=== PATIENT | male | born 1975 ===

== ENCOUNTER 2020-03-23 12:44 | Inpatient (IN) | payer MEDICAID, SELFPAY ==
[2020-03-23] VITALS (29 sets, daily range): BP systolic 108–151; BP diastolic 68–89; PULSE 82–106; RESP 8–32; TEMP 37.1; O2SAT 87–93
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
--- NOTE | ~2020-03-23 | US_ITS ---
US right upper quadrant INDICATION: Elevated liver enzymes PROCEDURE: Realtime right upper abdominal ultrasound. COMPARISON: No prior studies for comparison. FINDINGS: The pancreas is normal without focal mass or pancreatic ductal dilation. Liver echotexture is normal without focal mass or intrahepatic biliary dilatation. There is normal directional flow i n the portal vein. The gallbladder is normal without stones, gallbladder wall thickening or pericholecystic fluid. Comm on bile duct measures 2.4 mm. No sonographic Parra's sign. IMPRESSION: 1: Normal limited abdominal ultrasound. Reviewed, dictated and finalized at location A. EL SETTER
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
[2020-03-23] MEDS: ALBUTEROL SULFATE NEB 2.5 MG/0.5 ML INH 5 MG INHALATION ×2 (13:21→14:44)
[2020-03-23] MEDS: IPRATROPIUM BR 0.02% INH SOLN 0.5 MG/2.5 ML VIAL INHALATION ×2 (13:21→14:45)
--- NOTE | 2020-03-23 13:34 | PC.NURSE ---
Pt moved to ED Rm 9 per ANDREW Starrmanufacturing quality technician of patient being suicidal. Suicide precautions initiated. 1:1 evaluation with sitter initiated per hospital protocol. ISP officer at bedside.
[2020-03-23 13:43] LABS: Basophils Absolute Auto 0.1 K/mm3 (0.0-0.1); Basophils Percent Auto 0.5 % (0.2-1.2); Eosinophils Absolute Auto 0.1 K/mm3 (0-0.3); Eosinophils Percent Auto 0.9 % (0-4.4); Hematocrit 47.3 % (42.0-52.0); Hemoglobin 17.1 g/dL (14.0-18.0); Immature Granulocyte Absolute 0.03 K/mm3 (0.00-0.031); Immature Granulocyte Percent A 0.3 % (0-0.5); Lymphocytes Absolute Auto 1.78 K/mm3 (0.9-3.2); Lymphocytes Percent Auto 18.7 % (18.3-44.2); Mean Corpuscular HGB Conc 36.2 g/dl (32-36); Mean Corpuscular Hemoglobin 33.3 pg (26-34); Mean Platelet Volume 9.2 fl (7.4-10.4); Monocytes Absolute Auto 0.9 K/mm3 (0.1-0.6); Monocytes Percent Auto 9.4 % (2.6-8.5); Neutrophils Absolute Auto 6.7 K/mm3 (1.3-6.7); Neutrophils Percent Auto 70.2 % (45.5-73.1); Platelet Count Result 204 k/mm3 (150-375); Red Blood Count 5.14 M/mm3 (4.6-6.20); Red Cell Distribution Width 12.2 % (11.5-14.5); White Blood Count 9.5 K/mm3 (4.5-10.0)
[2020-03-23 13:45] LABS: Add Urine Microscopic? NO; Appearance Urine Clear (Clear); Bilirubin Urine Negative (Negative); Blood Urine Negative (Negative); Color Urine Colorless (Yellow); Glucose Urine UA Negative (Negative); Ketones Urine Negative (Negative); Leukocyte Esterase Ur Negative LEU/UL (Negative); Nitrate Urine Negative (Negative); Protein Urine Negative (Negative); Urobilinogen Urine Negative mg/dL (<2.0)
--- NOTE | 2020-03-23 13:48 | PC.NURSE ---
UDT being given per RT.
[2020-03-23 13:53] LABS: INR 0.9; Partial Thromboplastin Time 27.2 SECONDS (22.3-36.8)
[2020-03-23 13:55] LABS: Alanine Aminotransferase 101 U/L (4-50); Albumin Level 4.5 g/dL (3.5-5.1); Alkaline Phosphatase 82 U/L (38-126); Anion Gap 10 mmol/L (8-16); Aspartate Amino Transferase 159 U/L (17-59); Bilirubin,Total 0.6 mg/dL (0.2-1.3); Blood Urea Nitrogen 5 mg/dL (9-20); Carbon Dioxide 30 mmol/L (22-30); Chloride 99 mmol/L (98-107); Estimated CRCL calculation 121 ml/min; Estimated Glomerular Filt Rate > 60; Glucose 102 mg/dL (75-110); Potassium 3.9 mmol/L (3.4-5.0); Sodium 139 mmol/L (137-145)
[2020-03-23 14:04] LABS: Specific Grav Ur 1.004 (1.001-1.035)
[2020-03-23 14:06] LABS: Amphetamine Screen Urine Negative (Negative); Barbiturate Screen Urine Negative (Negative); Benzodiazepines Screen Urine Negative (Negative); Cannabinoid Screen Urine Negative (Negative); Cocaine Screen Urine Negative (Negative); Methadone Screen Urine Negative (Negative); Opiate Screen Urine Negative (Negative); Phencyclidine Screen Urine Negative (Negative)
[2020-03-23 14:15] LABS: Ethanol 351 mg/dL (<10)
--- NOTE | 2020-03-23 14:24 | PC.NURSE ---
Pt listening to ISP outside of room, states you all have to keep me here for a long time, I'm really fucked up in the head .
[2020-03-23 14:25] LABS: Thyroid Stimulating Hormone 0.389 uIU/mL (0.465-4.680)
[2020-03-23] MEDS: methylPREDNISolone SOD SUCC 125 MG VIAL IV PUSH (14:33)
--- NOTE | 2020-03-23 14:34 | PC.NURSE ---
Pt requesting librium po, states where I'm going I'm going to need something for the shaking . Pt given solumedrol IM. C-collar removed per order JESSICA Piper. Note pt has deep, thick sounding cough. Pt reports pain with deep inspiration and coughing.
--- NOTE | 2020-03-23 14:41 | PC.NURSE ---
Pt given solumedrol 125mg IM as does not have IV access per JESSICA Ling.
--- NOTE | 2020-03-23 15:08 | PC.NURSE ---
Pt placed on 02 at 2l/nc for spo2 in 86-88% on room air. spo2 increases to 91%. ISP at bedside issuing patient his tickets.
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
--- NOTE | 2020-03-23 15:48 | PC.NURSE ---
Pt again requests either a librium or a beer. Come on. I'm about to get the shakes . JESSICA Piper, made aware.
--- NOTE | 2020-03-23 16:22 | PC.NURSE ---
Pt made aware of pending bed assignment. Pt resting comfortably on stretcher. Denies needs at present. 1:1 observation continues with sitter per protocol.
--- NOTE | 2020-03-23 17:46 | PC.NURSE ---
Attempt to call report to floor, unable to take and will call back.
--- NOTE | 2020-03-23 18:15 | PC.NURSE ---
Pt transferred to IMU via stretcher per staff. 1:1 sitter to go to floor to continue observation per hospital policy.
[2020-03-23] MEDS: SODIUM CHLORIDE 0.9% IV 1,000 ML 125 ML IV CONT (18:38)
--- NOTE | 2020-03-23 18:53 | ADMGEN ---
This patient, Joe Leyva, was admitted to IMU Room 231-01. Patient/family oriented to hospital policies and general routines including ID bracelet, bed and alarms, visiting hours, pain management, procedures, bathroom and other care routines, personal items, smoking policy, room service/diet, and visiting hours. Information on how to activate the Rapid Response Team has been discussed. Patient/Family are encouraged to report perceived risks to care and to ask questions if they do not understand what they are told or what they should do.
[2020-03-23] MEDS: LORazepam INJ (*CRX) 2 MG/ML VIAL 1 MG IV PUSH (20:25)
[2020-03-23] MEDS: ONDANSETRON INJ 4 MG/2 ML VIAL IV PUSH (20:28)
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
[2020-03-23] MEDS: chlordiazePOXIDE (*CRX) 25 MG CAPSULE 50 MG PO (22:29)
[2020-03-23] MEDS: NICOTINE (*PBKC) 21 MG PATCH 1 PATCH TRANSDERM (22:30)
[2020-03-23] MEDS: methylPREDNISolone SOD SUCC 40 MG VIAL IV PUSH (22:30)
[2020-03-23 23:12] LABS: Hepatitis B Surface Antigen Negative (Negative)
[2020-03-23 23:18] LABS: HAV RESULT Negative (Negative); Hepatitis B Core IgM Result Negative (Negative)
[2020-03-23 23:30] LABS: Hepatitis C Virus Antibody Negative (Negative)
[2020-03-24] VITALS (8 sets, daily range): BP systolic 128–151; BP diastolic 70–83; PULSE 78–100; RESP 16–20; TEMP 36.2–37; O2SAT 92–97
[2020-03-24] MEDS: SODIUM CHLORIDE 0.9% IV 1,000 ML 125 ML IV CONT ×2 (02:17→10:28)
[2020-03-24] MEDS: LORazepam INJ (*CRX) 2 MG/ML VIAL 1 MG IV PUSH ×3 (02:23→20:20)
[2020-03-24] MEDS: methylPREDNISolone SOD SUCC 40 MG VIAL IV PUSH ×3 (05:21→20:17)
[2020-03-24] MEDS: chlordiazePOXIDE (*CRX) 25 MG CAPSULE 50 MG PO ×4 (05:22→23:11)
[2020-03-24 06:18] LABS: Hematocrit 41.4 % (42.0-52.0); Hemoglobin 14.7 g/dL (14.0-18.0); Immature Granulocyte Absolute 0.02 K/mm3 (0.00-0.031); Immature Granulocyte Percent A 0.4 % (0-0.5); Lymphocytes Absolute Auto 0.61 K/mm3 (0.9-3.2); Lymphocytes Percent Auto 10.8 % (18.3-44.2); Mean Corpuscular HGB Conc 35.5 g/dl (32-36); Mean Corpuscular Hemoglobin 32.8 pg (26-34); Mean Corpuscular Volume 92.4 fl (80-100); Mean Platelet Volume 9.7 fl (7.4-10.4); Monocytes Absolute Auto 0.1 K/mm3 (0.1-0.6); Monocytes Percent Auto 2.5 % (2.6-8.5); Neutrophils Absolute Auto 4.9 K/mm3 (1.3-6.7); Neutrophils Percent Auto 86.3 % (45.5-73.1); Platelet Count Result 179 k/mm3 (150-375); Red Blood Count 4.48 M/mm3 (4.6-6.20); White Blood Count 5.7 K/mm3 (4.5-10.0)
[2020-03-24 06:26] LABS: Magnesium 1.9 mg/dL (1.6-2.3)
[2020-03-24] MEDS: NICOTINE (*PBKC) 21 MG PATCH 1 PATCH TRANSDERM (12:32)
[2020-03-24] MEDS: ENOXAPARIN 40 MG/0.4 ML SYRINGE SUB-Q (12:42)
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
[2020-03-24] MEDS: ALBUTEROL SULFATE (*SP) AEROSOL 1 PUFF 2 PUFF INHALATION (19:54)
[2020-03-25] VITALS (15 sets, daily range): BP systolic 118–142; BP diastolic 68–90; PULSE 54–90; RESP 16–20; TEMP 35.8–36.7; O2SAT 95–97
[2020-03-25] MEDS: ALBUTEROL SULFATE (*SP) AEROSOL 1 PUFF 2 PUFF INHALATION ×2 (02:30→10:26)
[2020-03-25] MEDS: methylPREDNISolone SOD SUCC 40 MG VIAL IV PUSH (04:55)
[2020-03-25] MEDS: chlordiazePOXIDE (*CRX) 25 MG CAPSULE 50 MG PO ×4 (04:55→23:46)
[2020-03-25] MEDS: NICOTINE (*PBKC) 21 MG PATCH 1 PATCH TRANSDERM (05:28)
[2020-03-25 05:51] LABS: Hematocrit 43.2 % (42.0-52.0); Hemoglobin 15.5 g/dL (14.0-18.0); Mean Corpuscular HGB Conc 35.9 g/dl (32-36); Mean Corpuscular Hemoglobin 32.7 pg (26-34); Mean Corpuscular Volume 91.1 fl (80-100); Mean Platelet Volume 9.7 fl (7.4-10.4); Platelet Count Result 171 k/mm3 (150-375); Red Blood Count 4.74 M/mm3 (4.6-6.20); Red Cell Distribution Width 11.9 % (11.5-14.5); White Blood Count 15.3 K/mm3 (4.5-10.0)
[2020-03-25 06:09] LABS: Anion Gap 7 mmol/L (8-16); Blood Urea Nitrogen 11 mg/dL (9-20); Calcium 9.6 mg/dL (8.4-10.2); Carbon Dioxide 30 mmol/L (22-30); Chloride 99 mmol/L (98-107); Estimated CRCL calculation 121 ml/min; Estimated Glomerular Filt Rate > 60; Glucose 136 mg/dL (75-110); Potassium 3.9 mmol/L (3.4-5.0); Sodium 136 mmol/L (137-145)
[2020-03-25 10:11] LABS: Alanine Aminotransferase 91 U/L (4-50); Albumin Level 4.1 g/dL (3.5-5.1); Alkaline Phosphatase 63 U/L (38-126); Anion Gap 5 mmol/L (8-16); Aspartate Amino Transferase 103 U/L (17-59); Bilirubin,Total 0.7 mg/dL (0.2-1.3); Blood Urea Nitrogen 10 mg/dL (9-20); Calcium 9.7 mg/dL (8.4-10.2); Carbon Dioxide 32 mmol/L (22-30); Chloride 99 mmol/L (98-107); Estimated CRCL calculation 121 ml/min; Estimated Glomerular Filt Rate > 60; Glucose 120 mg/dL (75-110); Potassium 3.5 mmol/L (3.4-5.0); Sodium 136 mmol/L (137-145)
[2020-03-25] MEDS: ENOXAPARIN 40 MG/0.4 ML SYRINGE SUB-Q (10:27)
[2020-03-25] MEDS: THIAMINE HCL 100 MG TABLET PO (10:28)
[2020-03-25] MEDS: FOLIC ACID 1 MG TABLET PO (10:28)
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
[2020-03-25] MEDS: methylPREDNISolone SOD SUCC 125 MG VIAL 60 MG IV PUSH ×2 (14:01→21:44)
[2020-03-25] MEDS: ALBUTEROL SULFATE NEB 2.5 MG/0.5 ML INH INHALATION (20:37)
[2020-03-26] VITALS (14 sets, daily range): BP systolic 125–137; BP diastolic 74–88; PULSE 70–78; RESP 18; TEMP 36.1–36.5; O2SAT 92–96
[2020-03-26] MEDS: ALBUTEROL SULFATE NEB 2.5 MG/0.5 ML INH INHALATION ×4 (01:53→20:28)
[2020-03-26 05:36] LABS: Hematocrit 42.3 % (42.0-52.0); Hemoglobin 14.9 g/dL (14.0-18.0); Mean Corpuscular HGB Conc 35.2 g/dl (32-36); Mean Corpuscular Hemoglobin 32.3 pg (26-34); Mean Corpuscular Volume 91.6 fl (80-100); Mean Platelet Volume 10.3 fl (7.4-10.4); Platelet Count Result 165 k/mm3 (150-375); Red Blood Count 4.62 M/mm3 (4.6-6.20); Red Cell Distribution Width 12.1 % (11.5-14.5); White Blood Count 7.8 K/mm3 (4.5-10.0)
[2020-03-26 05:48] LABS: Alanine Aminotransferase 120 U/L (4-50); Albumin Level 4.2 g/dL (3.5-5.1); Alkaline Phosphatase 65 U/L (38-126); Anion Gap 8 mmol/L (8-16); Aspartate Amino Transferase 108 U/L (17-59); Bilirubin,Total 0.6 mg/dL (0.2-1.3); Blood Urea Nitrogen 14 mg/dL (9-20); Calcium 9.4 mg/dL (8.4-10.2); Carbon Dioxide 28 mmol/L (22-30); Chloride 99 mmol/L (98-107); Estimated CRCL calculation 105 ml/min; Estimated Glomerular Filt Rate > 60; Glucose 171 mg/dL (75-110); Potassium 3.7 mmol/L (3.4-5.0); Sodium 135 mmol/L (137-145)
[2020-03-26] MEDS: chlordiazePOXIDE (*CRX) 25 MG CAPSULE 50 MG PO ×2 (06:19→14:21)
[2020-03-26] MEDS: methylPREDNISolone SOD SUCC 125 MG VIAL 60 MG IV PUSH ×2 (06:22→14:21)
[2020-03-26] MEDS: NICOTINE (*PBKC) 21 MG PATCH 1 PATCH TRANSDERM (09:37)
[2020-03-26] MEDS: THIAMINE HCL 100 MG TABLET PO (10:33)
[2020-03-26] MEDS: ENOXAPARIN 40 MG/0.4 ML SYRINGE SUB-Q (10:33)
[2020-03-26] MEDS: FOLIC ACID 1 MG TABLET PO (10:33)
[2020-03-26] MEDS: IPRATROPIUM BR 0.02% INH SOLN 0.5 MG/2.5 ML VIAL INHALATION ×2 (10:35→20:28)
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
[2020-03-26] MEDS: chlordiazePOXIDE (*CRX) 25 MG CAPSULE PO (21:50)
[2020-03-26] MEDS: LORazepam INJ (*CRX) 2 MG/ML VIAL 1 MG IV PUSH (21:50)
[2020-03-26 23:29] LABS: SARS-CoV-2 RNA PCR Negative
[2020-03-27] VITALS (8 sets, daily range): BP systolic 134; BP diastolic 76; PULSE 62–76; RESP 16–18; TEMP 36.1; O2SAT 95–98
[2020-03-27] MEDS: IPRATROPIUM BR 0.02% INH SOLN 0.5 MG/2.5 ML VIAL INHALATION ×2 (03:00→10:38)
[2020-03-27] MEDS: ALBUTEROL SULFATE NEB 2.5 MG/0.5 ML INH INHALATION ×2 (03:00→10:37)
[2020-03-27] MEDS: chlordiazePOXIDE (*CRX) 25 MG CAPSULE PO (06:22)
[2020-03-27] MEDS: predniSONE 20 MG TABLET 40 MG PO (09:21)
[2020-03-27] MEDS: NICOTINE (*PBKC) 21 MG PATCH 1 PATCH TRANSDERM (09:22)
[2020-03-27] MEDS: ENOXAPARIN 40 MG/0.4 ML SYRINGE SUB-Q (09:22)
[2020-03-27] MEDS: FOLIC ACID 1 MG TABLET PO (09:22)
[2020-03-27] MEDS: THIAMINE HCL 100 MG TABLET PO (09:22)
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
--- NOTE | 2020-03-27 14:13 | PC.NURSE ---
Pt discharged at 1403 with safety plan. Discharge instructions given and explained to pt, verbalized understanding. IV catheter removed. No further questions at this time
== END 2020-03-27 14:03 | disposition home or self-care (01) | DRG 897 ==
LOC: ANHED 15:21 → ANHIMU 17:39
PROVIDERS: Nurse Practitioner; Physician Assistant; Admitting Provider Family Medicine; Emergency Provider Emergency Medicine; PCP Nurse Practitioner Family; Visit Provider Internal Medicine
DX: F10.129 Alcohol abuse with intoxication, unspecified (principal); R45.851 Suicidal ideations; J44.1 Chronic obstructive pulmonary disease with (acute) exacerbation; Y90.8 Blood alcohol level of 240 mg/100 ml or more; Z20.822 Contact with and (suspected) exposure to COVID-19; V49.9XXA Car occupant (driver) (passenger) injured in unspecified traffic accident, initial encounter; F17.210 Nicotine dependence, cigarettes, uncomplicated; F41.8 Other specified anxiety disorders; R09.02 Hypoxemia
CPT/HCPCS: 36415; 70450; 71045; 72125; 72131; 76705; 80048; 80053; 80074; 80307; 81003; 83735; 84443; 85025; 85027; 85610; 85730; 94640; 96361; 96372; 96374; 96375; 96376; 99285; A9270; C9803; G0378; J1650; J2060; J2405; J2920; J2930; J7030; J7512; U0003